=== PATIENT | male | born 1965 | race Caucasian/White ===

== ENCOUNTER 2019-08-21 20:55 | Emergency (ER) | payer BC ==
--- NOTE | 2019-08-21 22:15 | RAD ---
RIGHT SHOULDER THREE VIEWS: 08/21/19 No fracture or dislocation was seen. The AC joint is normal in width. There is a bit of bony spurring on the undersurface of the AC joint which could potentially impinge upon the passing rotator cuff t endons. The scapula and visible adjacent ribs appear intact. IMPRESSION: No acute traumatic finding. POS: HOME
--- NOTE | 2019-08-21 22:16 | RAD ---
LEFT FIFTH TOE 08/21/19 The lateral view does not show the fifth toe adequately due to overlap. The other two views suggest t here probably has been an old healed fracture of the proximal phalanx of the toe, but I see no findin gs strongly suggestive of acute fracture. IMPRESSION: No acute bony finding. POS: HOME
== END 2019-08-21 21:42 | disposition home or self-care (01) ==
LOC: BURERS 20:55
DX: S90.122A Contusion of left lesser toe(s) without damage to nail, initial encounter (principal); S40.011A Contusion of right shoulder, initial encounter; F17.210 Nicotine dependence, cigarettes, uncomplicated; E03.9 Hypothyroidism, unspecified; Z79.899 Other long term (current) drug therapy; W19.XXXA Unspecified fall, initial encounter